=== PATIENT | female | born 1990 | race Caucasian/White ===

== ENCOUNTER 2018-12-25 13:19 | Emergency (ER) | payer OTHER ==
--- OUTSIDE RECORDS SUMMARY | 2018-12-25 13:21 | XMS REPORT ---
:1990 Author Organization eClinicalWorks Care Team Providers Name Role Phone Tavares Macario Provider Role Unavailable Allergies No Known Allergies Problems Problem Type Condition Code Onset Dates Condition Status Problem Well woman exam with routine Z01.419 Active gynecological exam Problem BMI 33.0-33.9,adult Z68.33 Active Problem Hot flashes R23.2 Active Problem Pelvic pain R10.2 Active Problem Acute vaginitis N76.0 Active Problem Encounter for other general Z30.09 Active counseling or advice on contraception Problem Other specified bacterial agents as B96.89 Active the cause of diseases classified elsewhere Problem Elevated blood pressure R03.0 Active Problem Hyperlipidemia E78.5 Active Problem Body mass index (BMI) of 36.0-36.9 Z68.36 Active in adult Problem Obstructive sleep apnea G47.33 Active Medications No Known Medications Results No Known Results Summary Purpose eClinicalWorks Submission
--- OUTSIDE RECORDS SUMMARY | 2018-12-25 13:21 | XMS REPORT ---
:1990 Author Organization eClinicalWorks Care Team Providers Name Role Phone Tavares Macario Provider Role Unavailable Allergies, Adverse Reactions, Alerts Substance Reaction Event Type N.K.D.A. Info Not Available Non Drug Allergy Problems Problem Type Condition Code Onset Dates Condition Status Problem Well woman exam with routine Z01.419 Active gynecological exam Problem BMI 33.0-33.9,adult Z68.33 Active Problem Hot flashes R23.2 Active Problem Acute vaginitis N76.0 Active Problem Encounter for other general Z30.09 Active counseling or advice on contraception Problem Other specified bacterial agents as B96.89 Active the cause of diseases classified elsewhere Problem Elevated blood pressure R03.0 Active Problem Hyperlipidemia E78.5 Active Problem Body mass index (BMI) of 36.0-36.9 Z68.36 Active in adult Problem Obstructive sleep apnea G47.33 Active Assessment Encounter for other general Z30.09 Active counseling or advice on contraception Assessment Pelvic pain R10.2 Active Assessment Well woman exam with routine Z01.419 Active gynecological exam Assessment Acute vaginitis N76.0 Active Assessment Other specified bacterial agents as B96.89 Active the cause of diseases classified elsewhere Problem Pelvic pain R10.2 Active Medications Medication Code Code Instructions Start End Status Dosage System Date Date Flonase [facility] 55986838077 50 MCG/ACT September 22 Active as directed Nasally twice a 2017 day BusPIRone HCl [facility] 86078860990 15 MG Orally Active 1 tablet Twice a day Nuvessa [facility] 76756864860 1.3 % Vaginal July Active as directed once at bedtime 2018 Clonazepam [facility] 44763945194 0.5 MG Orally Active 1 tablet on Once a day the tongue and allow to dissolve at bedtime 05/16 [facility] [address]-23 1-20 MG-MCG Active TAKE 1 TABLET BY MOUTH DAILY Fluticasone [facility] 07565899529 50 MCG/ACT July Active 1 spray in Propionate Nasally Once a 2018 each day nostril Metformin HCl [facility] 03748901079 500 MG Orally [place] Active 1 tablet Once a day 2018 with a meal Zoloft [facility] 18394324787 100 MG Orally Active 1 tablet Once a day Results Name Result Date Reference Range Unit Abnormality Flag URINALYSIS AUTO W/O SCOPE (35802) ----NIT neg [id number] ----URO 0.2 [id number] ----PROTEIN neg [id number] ----pH 6.5 20180812 ----BLO neg [id number] ----GLUCOSE neg [id number] ----JOHNNIE neg [id number] ----BILIRUBIN 1+ [id number] ----KETONES neg [id number] ----SPECIFIC GRAVITY 1.020 [id number] Summary Purpose eClinicalWorks Submission
--- OUTSIDE RECORDS SUMMARY | 2018-12-25 13:21 | XMS REPORT ---
:1990 Author Organization eClinicalWorks Care Team Providers Name Role Phone Cordell Krishnan Provider Role Unavailable Allergies No Known Allergies Problems Problem Type Condition Code Onset Dates Condition Status Problem Well woman exam with routine Z01.419 Active gynecological exam Problem BMI 33.0-33.9,adult Z68.33 Active Problem Hyperlipidemia E78.5 Active Assessment Amenorrhea N91.2 Active Problem Hot flashes R23.2 Active Problem Pelvic pain R10.2 Active Problem Other specified bacterial agents as B96.89 Active the cause of diseases classified elsewhere Problem Acute vaginitis N76.0 Active Problem Amenorrhea N91.2 Active Problem Obstructive sleep apnea G47.33 Active Problem Elevated blood pressure R03.0 Active Problem Encounter for other general Z30.09 Active counseling or advice on contraception Problem Body mass index (BMI) of 36.0-36.9 Z68.36 Active in adult Medications No Known Medications Results No Known Results Summary Purpose [facility] Submission
--- OUTSIDE RECORDS SUMMARY | 2018-12-25 13:21 | XMS REPORT ---
[...] Medications Results No Known Results Summary Purpose [employer] Submission
--- OUTSIDE RECORDS SUMMARY | 2018-12-25 13:21 | XMS REPORT ---
:1990 Author Organization eClinicalWorks Care Team Providers Name Role Phone Cordell Krishnan Provider Role Unavailable Allergies, Adverse Reactions, Alerts Substance Reaction Event Type N.K.D.A. Info Not Available Non Drug Allergy Problems Problem Type Condition Code Onset Dates Condition Status Assessment Body mass index (BMI) of 36.0-36.9 Z68.36 Active in adult Problem Hot flashes R23.2 Active Assessment Viral upper respiratory tract J06.9 Active infection Assessment Obstructive sleep apnea G47.33 Active Problem Body mass index (BMI) of 36.0-36.9 Z68.36 Active in adult Problem Elevated blood pressure R03.0 Active Problem Obstructive sleep apnea G47.33 Active Problem Well woman exam with routine Z01.419 Active gynecological exam Problem Pelvic pain R10.2 Active Problem BMI 33.0-33.9,adult Z68.33 Active Problem Hyperlipidemia E78.5 Active Medications Medication Code Code Instructions Start End Date Status Dosage System Date GNP [facility] 45023693220 5-120 MG Orally July Active 1 tablet Loratadine-D every 12 hrs 2018 as needed 12HR Flagyl ND 20073253256 500 MG Orally Active 1 tablet every 12 hours Flonase ND 85024911927 50 MCG/ACT September 22 Active as Nasally twice a 2017 directed day Zoloft ND 84366512116 100 MG Orally Active 1 tablet Once a day Clonazepam ND 73136497717 0.5 MG Orally Active 1 tablet Once a day on the tongue and allow to dissolve at bedtime Metformin HCl ND 20628879850 500 MG Orally July Active 1 tablet Once a day 2018 with a meal Fluticasone ND 01938199418 50 MCG/ACT July Active 1 spray in Propionate Nasally Once a 2018 each day nostril 05/16 [facility] [address]-98 1-20 MG-MCG Active TAKE 1 TABLET BY MOUTH DAILY BusPIRone HCl ND 65211743232 15 MG Orally Active 1 tablet Twice a day Results No Known Results Summary Purpose eClinicalWorks Submission
--- OUTSIDE RECORDS SUMMARY | 2018-12-25 13:22 | XMS REPORT ---
[...] of 36.0-36.9 Z68.36 Active in adult Medications Medication Code Code Instructions Start End Status Dosage System Date Date 05/16 [facility] 52983903717 1-20 MG-MCG Active TAKE 1 Orally Once a TABLET BY day MOUTH DAILY Seasonique [facility] 83771049869 0.15-0.03 &0.01 September 28, Active 1 tablet MG Orally Once 2018 a day Clonazepam [facility] 06087513258 0.5 MG Orally Active 1 tablet on Once a day the tongue and allow to dissolve at bedtime BusPIRone HCl [facility] 19595221644 15 MG Orally Active 1 tablet Twice a day Metformin HCl [facility] 35644774083 500 MG Orally July Active 1 tablet Once a day 2018 with a meal Fluticasone [facility] 54066913887 50 MCG/ACT July Active 1 spray in Propionate Nasally Once a 2018 each day nostril Loestrin 1.5/30 [facility] 80526248327 1.5-30 MG-MCG October 01, Active 1 tablet (21) Orally take 2019 continously for 3 months skipping placebo tablets Zoloft [facility] 85883504309 100 MG Orally Active 1 tablet Once a day Results No Known Results Summary Purpose eClinicalWorks Submission
[2018-12-25] MEDS ORDERED: ONDANSETRON 4 MG/2 ML VIAL ONE (13:55)
[2018-12-25] MEDS ORDERED: NA CHLORIDE 0.9% 1,000 ML ONE (13:55)
[2018-12-25] MEDS ORDERED: MORPHINE 4 MG/ML SYR ONE ×2 (13:55→16:55)
[2018-12-25 14:17] LABS: Absolute Lymphocytes (CBC) 2.7 K/uL (0.7-4.9); Basophils % 0.5 % (0-1.3); Hematocrit 38.5 % (36.0-45.0); Lymphocytes % 30.2 % (15.3-44.8); MPV 8.6 fL (7.6-11.3); RBC Red Blood Cell Count 4.15 M/uL (3.86-4.86)
[2018-12-25] MEDS ORDERED: DIPHENHYDRAMINE 50 MG/ML VIAL ONE (14:22)
[2018-12-25 14:32] LABS: Albumin 3.5 g/dL (3.4-5.0); Bilirubin Total 0.2 mg/dL (0.2-1.0); Potassium 3.7 mmol/L (3.5-5.1); Protein, Total 7.6 g/dL (6.4-8.2)
[2018-12-25] MEDS ORDERED: MORPHINE 2 MG/ML SYR ONE (15:37)
[2018-12-25 15:50] LABS: Urine Blood TRACE (NEG); Urine Glucose NEGATIVE (NEG); Urine Protein NEGATIVE (NEG); Urine Specific Gravity 1.015 (1.005-1.030)
[2018-12-25 16:11] LABS: Urine Bacteria <20 /HPF (<20); Urine Culture Reflex Order REFLEXED; Urine RBC <5 /HPF (NONE SEEN); Urine Yeast PRESENT (NONE SEEN); Urine Yeast with Hyphae PRESENT
--- NOTE | 2018-12-25 16:24 | RAD REPORT ---
EXAM DESCRIPTION: CT - Abdomen Pelvis W Contrast - 12/25/2018 4:00 pm CLINICAL HISTORY: Abdominal pain/pelvic abscess COMPARISON: none. TECHNIQUE: Computed axial tomography of the abdomen pelvis was obtained. 100 cc Isovue-300 was admin istered intravenously. Oral contrast was not requested which limits evaluation of bowel. All CT scans are performed using dose optimization technique as appropriate and may include automated exposure control or mA/KV adjustment according to patient size. FINDINGS: 17 millimeter low to intermediate density lesion right lobe liver Spleen, pancreas, adrenal and kidneys appear unremarkable. There is no evidence of diverticulitis. Normal appendix Ill-defined increased density is present within the left labia. A fluid-filled abscess is not seen. The right ovary is borderline enlarged. The cervical canal is mildly prominent measuring 15 millimete rs Diastasis of the rectus abdominus muscles 5.6 cm. Tiny umbilical hernia IMPRESSION: Ill-defined increased density is present within the left labia. This has the appearance of a cellulitis. A fluid-filled abscess is not seen. The right ovary is borderline enlarged. The cervical canal is mildly prominent measuring 15 millimete rs. Both of these findings are probablynot significant. A followup pelvic ultrasound in 3 months is r ecommended for re-evaluation 17 millimeter hepatic lesion also nonspecific. This can be monitored with follow-up ultrasound in 3 [facility] to assess stability .
[2018-12-25] MEDS ORDERED: FLUCONAZOLE 100 MG TAB ONE (16:54)
--- NOTE | 2018-12-25 17:06 | ER ---
Nurse's Notes [facility] Name: Katherine Chávez Age: 28 yrs Sex: Female : 1990 Arrival Date: 12/25/2018 Time: 13:23 Bed 20 Private MD: Diagnosis: Cellulitis of the left Labia Presentation: 12/25 13:27 Presenting complaint: Patient states: I have had an abscess on my inner groin area la1 since Thursday, my doctor tried to drain it on . Transition of care: patient was not received from another setting of care. Onset of symptoms was December 25, 2018. Risk Assessment: Do you want to hurt yourself or someone else? Patient reports no desire to harm self or others. Initial Sepsis Screen: Does the patient meet any 2 criteria? No. Patient's initial sepsis screen is negative. Does the patient have a suspected source of infection? No. Patient's initial sepsis screen is negative. Care prior to arrival: None. 13:27 Method Of Arrival: Ambulatory la1 13:27 Acuity: SANCHEZ 3 la1 Historical: - Allergies: 13:27 No Known Allergies; la1 - PMHx: 13:27 None; la1 - Immunization history:: Adult Immunizations up to date. - Social history:: Smoking status: Patient/guardian denies using tobacco. - Ebola Screening: : No symptoms or risks identified at this time. Screenin:42 Abuse screen: Denies threats or abuse. Nutritional screening: No deficits noted. em Tuberculosis screening: No symptoms or risk factors identified. Fall Risk None identified. Assessment: 13:35 General: Appears in no apparent distress. distressed, Behavior is calm, cooperative, em Reports fever for 12-24 hours. Pain: Complains of pain in groin Pain currently is 8 out of 10 on a pain scale. Neuro: Level of Consciousness is awake, alert, obeys commands, Oriented to person, place, time, situation. Cardiovascular: Capillary refill < 3 seconds Patient's skin is warm and dry. Respiratory: Airway is patent Respiratory effort is even, unlabored, Respiratory pattern is regular, symmetrical. GI: Abdomen is round non-distended, Bowel sounds present X 4 quads. Reports lower abdominal pain, nausea. Derm: Skin is intact, is healthy with good turgor, Skin is pink, warm \T\ dry. Denies pain. Musculoskeletal: Capillary refill < 3 seconds, Range of motion: intact in all extremities. 13:35 Reassessment: I agree with assessment completed by Larry Cotter LVN. Swelling noted to aa5 left labia, pt c/o pain to site. . 13:42 Reassessment: MARCI Marques chaperoned provider. em Vital Signs: 13:28 BP 157 / 110; Pulse 97; Resp 16; Temp 98.2(TE); Pulse Ox 100% on R/A; Weight 98.88 kg; la1 Height 5 ft. 6 in. (167.64 cm); 14:30 BP 147 / 95; Pulse 82; Resp 18; Pulse Ox 97% on R/A; Pain 8/10; em 15:30 BP 138 / 88; Pulse 81; Resp 18; Pulse Ox 99% on R/A; Pain 6/10; em 17:04 BP 143 / 92; Pulse 98; Resp 16; Pulse Ox 97% on R/A; Pain 3/10; em 13:28 Body Mass Index 35.19 (98.88 kg, 167.64 cm) la1 ED Course: 13:23 Patient arrived in ED. mr 13:28 Triage completed. la1 13:28 Arm band placed on left wrist. la1 13:29 Larry Cotter LVN is Primary Nurse. em 13:35 Chandra Mendoza PA is PHCP. jmm 13:35 Cy Mendiola MD is Attending Physician. m 13:42 Patient has correct armband on for positive identification. Placed in gown. Bed in low em position. Call light in reach. Adult w/ patient. 13:45 chaperoned Chandra GARCIA with physical exam. eb 15:58 CT completed. Patient tolerated procedure well. Patient moved back from CT. bq 16:03 CT Abd/Pelvis - IV Contrast Only In Process Unspecified. EDMS 17:13 IV discontinued, intact, bleeding controlled, No redness/swelling at site. Pressure la1 dressing applied. Administered Medications: 14:09 Drug: NS 0.9% 1000 ml Route: IV; Rate: 1 bolus; Site: right forearm; aa5 16:30 Follow up: IV Status: Completed infusion; IV Intake: 1000ml la1 14:09 Drug: morphine 4 mg Route: IVP; Site: right forearm; aa5 14:51 Follow up: Response: No adverse reaction; Pain is decreased; RASS: Alert and Calm (0); em Redness noted to IV site, JOSE liu notified 14:09 Drug: Zofran 4 mg Route: IVP; Site: right forearm; aa5 14:19 Follow up: Redness noted to IV site, PA notified aa5 14:22 Drug: Benadryl 12.5 mg Route: IVP; Site: right forearm; aa5 14:50 Follow up: Response: No adverse reaction; Marked relief of symptoms em 15:39 Drug: morphine 2 mg Route: IVP; Site: right forearm; em 16:20 Follow up: Response: No adverse reaction; Pain is decreased; RASS: Alert and Calm (0) em 16:55 Drug: morphine 4 mg Route: IVP; Site: right forearm; em 17:13 Follow up: Response: No adverse reaction; Marked relief of symptoms; Pain is decreased; la1 RASS: Alert and Calm (0) 17:00 Drug: DiFLUcan 150 mg Route: PO; em 17:12 Follow up: Response: No adverse reaction la1 Intake: 16:30 IV: 1000ml; Total: 1000ml. la1 Outcome: 17:05 Discharge ordered by . kirit 17:13 Discharged to home ambulatory, with family. la1 17:13 Condition: good 17:13 Discharge instructions given to patient, family, Instructed on discharge instructions, follow up and referral plans. medication usage, wound care, Demonstrated understanding of instructions, follow-up care, medications, wound care, Prescriptions given X 1. 17:14 Patient left the ED. la1 Signatures: Dispatcher [employer] EDChandar Payne PA PA jmm Rivera, Kate mr Felipa Taylor bq Vahe, Larry, STEAM SHOVELMAN STEAM SHOVELMAN em Shanon Fonseca RN RN aa5 Philip Taylor RN RN la1 Shelli Doshi Corrections: (The following items were deleted from the chart) 14:51 14:19 Response: Redness noted to IV site, JOSE liu notified aa5 em
--- NOTE | 2018-12-25 17:07 | EDPHYS ---
Physician Documentation [facility] Name: Katherine Chávez Age: 28 yrs Sex: Female : 1990 Arrival Date: 12/25/2018 Time: 13:23 Bed 20 Private MD: ED Physician Cy Mendiola HPI: 12/25 13:37 This 28 yrs old Female presents to ER via Ambulatory with complaints of jmm Abscess. 13:37 the patient presents with a swollen area of the groin. Onset: The symptoms/episode jmm began/occurred gradually, 4 day(s) ago. Possible cause(s): unknown. Associated signs and symptoms: Pertinent positives: swelling. This is a 28 year old female with no chronic medical conditions that presents to the ED with complaints of left labial swelling beginning this past Thursday. Patient states the area was drained 2 days ago. Patient states she continues to have pain and swelling. Patient also complains of left sided abdominal pain. . Historical: - Allergies: 13:27 No Known Allergies; la1 - PMHx: 13:27 None; la1 - Immunization history:: Adult Immunizations up to date. - Social history:: Smoking status: Patient/guardian denies using tobacco. - Ebola Screening: : No symptoms or risks identified at this time. ROS: 13:37 Cardiovascular: Negative for chest pain, palpitations, and edema, Respiratory: Negative jmm for shortness of breath, cough, wheezing, and pleuritic chest pain. 13:37 Constitutional: Positive for body aches. 13:37 Skin: Positive for swelling. 13:37 All other systems are negative. Exam: 13:37 Head/Face: atraumatic. Eyes: EOMI, no conjunctival erythema appreciated ENT: Moist jmm Mucus Membranes Neck: Trachea midline, Supple Chest/axilla: Normal chest wall appearance and motion. Cardiovascular: Regular rate and rhythm. No edema appreciated Respiratory: Normal respirations, no respiratory distress appreciated Abdomen/GI: Non distended, soft 13:37 Constitutional: The patient appears alert, awake, anxious, uncomfortable. 13:37 : left labial swelling noted, TTP. 13:37 Skin: cellulitis, that is moderate, on the left labia majora. 13:37 Neuro: Orientation: is normal, Mentation: is normal, Memory: is normal. 13:37 Psych: Behavior/mood is pleasant, cooperative. Vital Signs: 13:28 BP 157 / 110; Pulse 97; Resp 16; Temp 98.2(TE); Pulse Ox 100% on R/A; Weight 98.88 kg; la1 Height 5 ft. 6 in. (167.64 cm); 14:30 BP 147 / 95; Pulse 82; Resp 18; Pulse Ox 97% on R/A; Pain 8/10; em 15:30 BP 138 / 88; Pulse 81; Resp 18; Pulse Ox 99% on R/A; Pain 6/10; em 17:04 BP 143 / 92; Pulse 98; Resp 16; Pulse Ox 97% on R/A; Pain 3/10; em 13:28 Body Mass Index 35.19 (98.88 kg, 167.64 cm) la1 MDM: 13:37 Patient medically screened. [facility] 17:04 Data reviewed: vital signs, nurses notes. Counseling: I had a detailed discussion with [facility] the patient and/or guardian regarding: the historical points, exam findings, and any diagnostic results supporting the discharge/admit diagnosis, the need for outpatient follow up, to return to the emergency department if symptoms worsen or persist or if there are any questions or concerns that arise at home. 17:04 ED course: Patient is alert and non toxic in appearance. Patient advised to continue [facility] oral abx. Patient advised to follow up with residential living assistant for reevaluation. Patient otherwise given strict return precautions. I also discussed liver findings from CT along with the need for repeat imaging. Patient understood and agrees with the plan of care. . 12/25 13:47 Order name: CBC with Diff; Complete Time: 14:39 [facility] 12/25 13:47 Order name: CMP; Complete Time: 14:39 [facility] 12/25 13:47 Order name: Procalcitonin; Complete Time: 14:49 [facility] 12/25 13:47 Order name: Lactate; Complete Time: 14:39 [facility] 12/25 13:47 Order name: Blood Culture Adult (2) [facility] 12/25 15:47 Order name: Urine Dipstick--Ancillary (enter results); Complete Time: 15:52 eb 12/25 15:19 Order name: CT Abd/Pelvis - IV Contrast Only; Complete Time: 16:37 [facility] 12/25 15:47 Order name: Urine --Ancillary (enter results); Complete Time: 15:52 eb 12/25 15:51 Order name: Urine Microscopic Only; Complete Time: 16:35 em 12/25 16:13 Order name: Urine Culture [facility] 12/25 13:47 Order name: Saline Lock; Complete Time: 14:02 [facility] 12/25 15:19 Order name: Urine Test (obtain specimen); Complete Time: 15:41 [facility] Administered Medications: 14:09 Drug: NS 0.9% 1000 ml Route: IV; Rate: 1 bolus; Site: right forearm; aa5 16:30 Follow up: IV Status: Completed infusion; IV Intake: 1000ml la1 14:09 Drug: morphine 4 mg Route: IVP; Site: right forearm; aa5 14:51 Follow up: Response: No adverse reaction; Pain is decreased; RASS: Alert and Calm (0); em Redness noted to IV site, PA wa notified 14:09 Drug: Zofran 4 mg Route: IVP; Site: right forearm; aa5 14:19 Follow up: Redness noted to IV site, PA notified aa5 14:22 Drug: Benadryl 12.5 mg Route: IVP; Site: right forearm; aa5 14:50 Follow up: Response: No adverse reaction; Marked relief of symptoms em 15:39 Drug: morphine 2 mg Route: IVP; Site: right forearm; em 16:20 Follow up: Response: No adverse reaction; Pain is decreased; RASS: Alert and Calm (0) em 16:55 Drug: morphine 4 mg Route: IVP; Site: right forearm; em 17:13 Follow up: Response: No adverse reaction; Marked relief of symptoms; Pain is decreased; la1 RASS: Alert and Calm (0) 17:00 Drug: DiFLUcan 150 mg Route: PO; em 17:12 Follow up: Response: No adverse reaction la1 Disposition: 12/25/18 17:05 Discharged to Home. Impression: Cellulitis of the left Labia. - Condition is Stable. - Discharge Instructions: Cellulitis, Adult. - Prescriptions for Ultracet 37.5- 325 mg Oral Tablet - take 1 tablet by ORAL route every 6 hours - for up to 5 days; do not exceed 8 tablets per day.; 20 tablet. - Medication Reconciliation Form, Thank You Letter, Antibiotic Education, Prescription Opioid Use form. - Follow up: Private Physician; When: 2 - 3 days; Reason: Recheck today's complaints, Continuance of care, Re-evaluation by your physician. Addendum: 12/27/2018 09:14 Co-signature as Attending Physician, Cy Mendiola MD I agree with the assessment and c reyes plan of care. Signatures: Dispatcher [employer] EDCy Snider MD MD cha Mickail, Joel, PA PA Larry Sinha, APPLICATION COUNSELOR APPLICATION COUNSELOR em Shanon Fonseca, RN RN aa5 Philip Taylor RN RN la1 Corrections: (The following items were deleted from the chart) 12/25 17:14 17:05 12/25/2018 17:05 Discharged to Home. Impression: Cellulitis of the left Labia. la1 Condition is Stable. Forms are Medication Reconciliation Form, Thank You Letter, Antibiotic Education, Prescription Opioid Use. Follow up: Private Physician; When: 2 - 3 days; Reason: Recheck today's complaints, Continuance of care, Re-evaluation by your physician. [facility]
[2018-12-25 17:26] VITALS: TEMP 98.2
[2018-12-25 17:29] VITALS: BP 143/92; O2SAT 97
== END 2018-12-25 17:14 | disposition home or self-care (01) ==
LOC: ER 13:19
DX: N76.2 Acute vulvitis (principal)
CPT/HCPCS: 96361; 87040 ×2; 87088; 85025; 87086; 36415; 81025; 83605; 80053; 84145; 74177; 96375; 96374; 99284; Q9967; J2270; J7030; J2405; 81003; 81015